=== PATIENT | female | born 1935 | race Asian ===

== ENCOUNTER 2018-05-19 09:41 | Emergency (ER) | payer OTHER, MEDICAID ==
[~2018-05-19] VITALS: Ht 157.5 cm; Wt 63.5 kg
[2018-05-19 09:55] VITALS: BP_SYST 137
[2018-05-19] MEDS ORDERED: HYDROcodone/ACETAMIN 10-325 MG TAB PO ONE (10:00)
[2018-05-19] MEDS ORDERED: KETOROLAC TROMETHAMINE 15 MG VIAL IVP ONE (10:15)
[2018-05-19 10:46] LABS: HEMATOCRIT 38.2 % (36-48); HEMOGLOBIN 12.7 g/dL (12.0-16.0); LYMPHOCYTES % (AUTO) 34.8 % (20.5-51.5); MEAN CORPUSCULAR HEMOGLOBIN 30 pg (27-31); MEAN CORPUSCULAR HGB CONC 33 % (32-36); MEAN CORPUSCULAR VOLUME 90 fL (79.0-98.0); NEUTROPHILS % (AUTO) 52.7 % (40.0-70.0); PLATELET COUNT (AUTO) 215 K/uL (130-430); RED BLOOD CELL COUNT(AUTO) 4.25 MIL/uL (4.2-6.2); RED CELL DISTRIBUTION WIDTH 14.1 % (9.0-15.0); WHITE BLOOD COUNT (AUTO) 4.4 K/uL (4.8-10.8)
[2018-05-19 10:47] LABS: EOSINOPHILS # (AUTO) 0.2 K/uL (0.0-0.4); EOSINOPHILS % (AUTO) 4.1 % (0.0-4.0); LYMPHOCYTES # (AUTO) 1.5 K/uL (1.0-5.5); MONOCYTES # (AUTO) 0.3 K/uL (0.0-1.0); MONOCYTES % (AUTO) 7.4 % (1.7-9.3); NEUTROPHILS # (AUTO) 2.3 K/uL (1.8-7.7)
[2018-05-19 10:56] LABS: ANION GAP 6 (5-15); CALCIUM 8.7 mg/dL (8.4-11.0); CHLORIDE 105 mmol/L (98-107); CREATININE 0.89 mg/dL (0.55-1.30); GLUCOSE 154 mg/dL (70-99); POTASSIUM 3.8 mmol/L (3.5-5.1); SODIUM SERUM 137 mmol/L (136-145); UREA NITROGEN, BLOOD 25 mg/dL (8-21)
[2018-05-19 10:59] LABS: PROTHROMBIN TIME 9.9 SECS (9.5-12.5)
[2018-05-19 11:00] LABS: ALANINE AMINOTRANSFERASE 21 U/L (12-78); ALBUMIN 3.3 g/dL (3.4-4.8); ASPARTATE AMINOTRANSFERASE 19 U/L (10-37); TOTAL BILIRUBIN 0.4 mg/dL (0.0-1.0); URIC ACID 6.5 mg/dL (2.4-7.0)
[2018-05-19 11:01] LABS: C-REACTIVE PROTEIN QUANT < 0.2 mg/dL (0-0.5)
[2018-05-19 12:40] VITALS: BP_SYST 134
== END 2018-05-19 12:40 | disposition home or self-care (01) ==
LOC: SED 09:41
DX: M54.30 Sciatica, unspecified side (principal)
CPT/HCPCS: 36415; 72192; 80053; 84550; 85025; 85610; 85730; 86140; 96374; 99284; J1885